=== PATIENT | male | born 1955 | race Two or more races ===

== ENCOUNTER 2021-04-13 09:36 | Day surgery (SDC) | payer MEDICARE, OTHER ==
[2021-04-11 15:09] VITALS: BMI 27.2
[~2021-04-13 09:36] MED LIST: ALPRAZolam 0.25 MG TAB PO PRN; ALPRAZolam 0.5 MG TAB PO PRN; ASPIRIN 325 MG TAB PO STA; ATORVASTATIN 80 MG TAB PO STA; NITROGLYCERIN SL TABS 0.4 MG TAB SUBLINGUAL PRN; SODIUM CHLORIDE 0.9% 1,000 ML in EMPTY BAG 1 BAG IV ONE
[2021-04-13] MEDS ORDERED: SODIUM CHLORIDE 0.9% 1,000 ML IV ONE (10:25)
[2021-04-13 10:36] LABS: Basophils % (A) 1 %; Eosinophils # (A) 0.3 k/uL (0-0.7); Eosinophils % (A) 5 %; HCT 39.5 % (39.0-53.0); HGB 13.4 gm/dL (13.0-17.5); Lymphocytes # (A) 2.2 k/uL (1.0-4.8); Lymphocytes % (A) 40 %; MCV 96.9 fL (80.0-100.0); Monocytes # (A) 0.4 k/uL (0-1.0); Monocytes % (A) 7 %; Neutrophils # (A) 2.5 k/uL (1.3-7.7); Neutrophils % (A) 46 %; Platelet Count 232 k/uL (150-450); RBC 4.08 m/uL (4.30-5.90); WBC 5.5 k/uL (3.8-10.6)
[2021-04-13] MEDS ORDERED: LIDOCAINE 1% INJ 10MG/ML (20 ML MDV) ONE (11:24)
[2021-04-13] MEDS ORDERED: fentaNYL (PF) 50 MCG/ML 2 ML AMP ONE (11:25)
[2021-04-13] MEDS ORDERED: MIDAZOLAM 2 MG/2 ML VIAL IV ONE (11:41)
[2021-04-13] MEDS ORDERED: LIDOCAINE 1% INJ 10MG/ML (20 ML MDV) SQ ONE (11:42)
[2021-04-13] MEDS ORDERED: HEPARIN SODIUM 1,000 UN/ML (10ML VL) ONE (12:13)
[2021-04-13] MEDS: HEPARIN SODIUM 1,000 UN/ML (10ML VL) IV ONE ×2 (12:20→12:30)
[2021-04-13] MEDS ORDERED: CLOPIDOGREL 75 MG TAB ONE (12:20)
[2021-04-13] MEDS ORDERED: CLOPIDOGREL 75 MG TAB PO ONE (12:24)
[2021-04-13] MEDS ORDERED: NITROGLYCERIN 1000MCG/10ML SYRINGE INTRACORON ONE ×2 (12:28→12:43)
[2021-04-13] MEDS ORDERED: IOPAMIDOL-370 125ML BTL INJ ONE (12:31)
[2021-04-13] MEDS ORDERED: IOPAMIDOL-370 100ML BTL INJ ONE ×2 (12:48→12:52)
[2021-04-13] MEDS ORDERED: NITROGLYCERIN SL TABS 0.4 MG TAB SUBLINGUAL PRN (13:04)
[2021-04-13] MEDS ORDERED: RX INFO: IV CONTRAST WAS GIVEN 1 EACH MISC MISCELLANE PRN (13:04)
[2021-04-13] MEDS ORDERED: ZOLPIDEM 5 MG TAB PO PRN (13:04)
[2021-04-13] MEDS ORDERED: ATROPINE SULFATE 0.1 MG/ML 10ML SYRINGE IV PRN (13:04)
[2021-04-13] MEDS ORDERED: MAG HYDROX/AL HYDROX/SIMETH 30 ML CUP PO PRN (13:04)
[2021-04-13] MEDS ORDERED: SODIUM CHLORIDE 0.9% 1,000 ML IV SCH (13:15)
--- NOTE | 2021-04-13 16:57 | CC ---
CARDIAC CATHETERIZATION REPORT INDICATION: Unstable angina. REFERRING PHYSICIAN: Dr. Shaheen Campos. PROCEDURE NOTE: After obtaining informed consent, left heart catheterization and coronary angiogram were performed via the right femoral artery using standard Esequiel catheters. Patient tolerated the procedure well without any obvious immediate complications. Patient received moderate conscious sedation. Total sedation time was 24 minutes. FINDINGS: HEMODYNAMICS: Left ventricular end-diastolic pressure is 18 mm. There is no significant gradient across the aortic valve. LEFT VENTRICULOGRAM: Not performed. ANGIOGRAPHIC DATA: LEFT MAIN CORONARY ARTERY: Left main coronary artery is a short vessel and is free of stenosis. Divides into left anterior descending coronary artery and circumflex coronary artery. LEFT ANTERIOR DESCENDING CORONARY ARTERY: The LAD images were obtained more selectively using a size 3.5 Eseuqiel catheter. CIRCUMFLEX CORONARY ARTERY is a large dominant vessel. The PDA shows about 80% stenosis. The OM branch which is a large caliber vessel shows an 80-90 percent stenosis. Proximal LAD shows a 90% stenosis. Mid to distal LAD has a 50-60 percent stenosis. CONCLUSIONS: Severe 2 vessel coronary artery disease as described above. PLAN: I reviewed angiographic data with Dr. Figueroa, the on-call hydraulic rockbreaker operator and had a long discussion with the patient about his treatment option including surgical revascularization versus catheter based revascularization, medical therapy. The patient understanding risks, benefits, wishes to have angioplasty and if necessary go to bypass surgery. The plan at this stage is to fix the LAD lesion, see what happens to his symptoms. If he is still symptomatic, we will go back and fix the PDA and attempt angioplasty of the OM branch which we believe is going to be more complex as a last resort. MMTRINAL / IJN: [id number] /
--- NOTE | 2021-04-13 16:57 | LTR ---
DATE OF SERVICE: 04/13/2021 Dear Shaheen: I performed cardiac catheterization on Tate Rodriguez. A detailed cardiac catheterization is enclosed for your records. In brief, the cardiac catheterization revealed severe 2 vessel coronary artery disease. We will attempt angioplasty of the LAD and if necessary the PDA coming off the Circ. Thank you as always for giving me the privilege to participate in the care of your patient. Sincerely, GLENIS / ELLAN: [id number] /
--- NOTE | 2021-04-13 17:27 | LTR ---
DATE OF SERVICE: 04/13/2021 Dr. Shaheen Campos Dear Dr. Campos: I had the pleasure of performing coronary angioplasty and stenting on Mr. Rodriguez at [facility] on April 13, and a full copy of procedure note will be forwarded to you. In brief, he underwent successful stenting of his proximal LAD and left PDA. I am hopeful that his procedure will stabilize his status and depending on his progress, further recommendations will be made. Thank you again for allowing me to participate in his care. Sincerely yours, MMODL / IJN: [id number] /
--- NOTE | 2021-04-13 17:27 | PTCA ---
PERCUTANEOUSTRANS CORORONARY ANGIOGRAPHY Mr. Rodriguez is a 65-year-old male with known history of diabetes who has been complaining of progressive exertional chest discomfort. He was evaluated by Dr. Palomo and underwent cardiac catheterization, was found to have critical stenosis involving the proximal LAD, the left PDA with a lesion in the left PLV as well as the first obtuse marginal branch. Discussion were made regarding possible coronary artery bypass grafting versus multivessel PCI. The decision was made to proceed with multivessel PCI. The procedure as well as the risks and the complications were discussed with the patient who is in full understanding and agreement. PROCEDURE DESCRIPTION: Using a 6-Czech FL4 guiding catheter, the left main was cannulated. Following that, a 0.014 balanced medium weight J-wire was advanced across the lesion, positioned distal LAD. Subsequently 2.5 x 12 mm NC Trek balloon was advanced and one inflation at 8 atmospheres was done. Following that, the balloon was removed and a 2.75 x 15 mm Xience Roberta stent was advanced, deployed and post dilated at 16 atmospheres. After the last inflation, after appropriate wait, the balloon and the guidewire were withdrawn back in the guiding catheter. Images were obtained, repeated. Those images reveal stable successful stenting. At that point, the wire was introduced into the distal left PDA and a 2.5 x 12 mm NC Trek balloon was advanced and two inflations at a maximum of 8 atmospheres were done. Following that, the balloon was removed and a 3.0 x 23 mm Xience Bar[place] point stent was advanced, deployed and post-dilated at 16 atmospheres. After the last inflation, after appropriate wait, the balloon and the guidewire were withdrawn back in the guiding catheter. Images were obtained repeated. Those images reveal stable successful stenting. At that point, the guiding catheter, the balloon and the guidewire were removed. The sheath was removed. Hemostasis was obtained with deployment of an Angio-Seal. There was no immediate complications. Patient is returned to his room in stable condition. Of note, the patient received a total of 8000 units of heparin. His ACT was followed and he received an oral loading dose of clopidogrel. He had chest discomfort and EKG changes with the inflations that resulted at the end of the procedure. RESULTS: 1. Successful stenting of the proximal LAD with reduction of stenosis from 95% to 0%. 2. Successful stenting of the left PDA with reduction of stenosis from 90% to 0%. RECOMMENDATIONS: Patient will be continued on aspirin, Plavix, statin and beta shahram. The importance of dual antiplatelet treatment were discussed with the patient and his family and they are in full understanding and agreement. He will be further evaluated regarding the need to undergo revascularization of his first obtuse marginal branch depending on his symptoms. Duration of sedation is 33 minutes. GLENIS / ELLAN: [id number] /
[2021-04-13] MEDS: METOPROLOL TARTRATE 25 MG TAB PO SCH (20:01)
[2021-04-13] MEDS ORDERED: PANTOPRAZOLE 40 MG TABLET PO SCH (21:00)
[2021-04-14 07:10] LABS: African American GFR (CKD) 86 (>60 ml/min/1.73 sqM); Anion Gap 11 mmol/L; Blood Urea Nitrogen 16 mg/dL (9-20); Calcium 10.1 mg/dL (8.4-10.2); Carbon Dioxide 24 mmol/L (22-30); Chloride 104 mmol/L (98-107); Glucose 125 mg/dL (74-99); Non-African American GFR(CKD) 74 (>60 ml/min/1.73 sqM); Potassium 4.6 mmol/L (3.5-5.1); Sodium 139 mmol/L (137-145)
[2021-04-14 07:14] LABS: Glucose,Whole Blood 140 mg/dL (75-99)
[2021-04-14] MEDS: METOPROLOL TARTRATE 25 MG TAB PO SCH (07:39)
[2021-04-14 07:46] VITALS: PULSE 54; RESP 17; TEMP 97.7
[2021-04-14] MEDS ORDERED: ATORVASTATIN 80 MG TAB PO SCH (09:00)
[2021-04-14] MEDS ORDERED: CLOPIDOGREL 75 MG TAB PO SCH (09:00)
[2021-04-14] MEDS ORDERED: ASPIRIN 81 MG PO SCH (09:00)
[2021-04-14] MEDS ORDERED: lisinopriL 10 MG TAB PO SCH (09:00)
--- NOTE | 2021-04-14 10:25 | PN ---
PROGRESS NOTE Mr. Rodriguez is a 65-year-old male, history of hypertension, hyperlipidemia, diabetes mellitus, who presented with new onset exertional angina pectoris, underwent cardiac catheterization by Dr. Palomo and was found to have critical stenosis involving the proximal LAD. The left PDA, the left PLV and the first obtuse marginal branch. He underwent stenting of the PDA and the LAD. He is feeling well this morning. He has no anginal symptoms. He denies any dizziness or palpitation. He denies any nausea. He continues to be on aspirin once a day, Plavix 75 mg daily, Lipitor 80 mg daily, lisinopril 10 mg daily, metoprolol tartrate 25 mg twice a day. PHYSICAL EXAMINATION: Blood pressure 132/80 with a heart rate in the 50s. Lungs: Clear. Heart: Regular rate and rhythm. S1, S2. No S3. No rub. Abdomen: Soft and nontender. Extremities: No edema. Right pulse intact. IMPRESSION: 1. Status post stenting and left PDA. 2. Obstructive disease in the first obtuse marginal branch in the left PLV. 3. Hypertension. 4. Diabetes. 5. Hyperlipidemia. RECOMMENDATIONS: I will stop his beta shahram. The patient should be able to be discharged home today and followed as an outpatient. He will continue medical therapy and observe his symptoms. If he has further symptoms, then revascularization of the PLV and the OM branch will be considered. MMTRINAL / ELLAN: [id number] /
--- NOTE | 2021-04-14 10:32 | DS ---
DISCHARGE SUMMARY Tate is a 65-year-old gentleman who presented to me with unstable angina and underwent cardiac catheterization and multivessel angioplasty. He had angioplasty of the LAD and left PDA and also has a lesion within the left PLV that we are going to treat with optimal medical therapy and see how he does. Today is postop post angioplasty day 1. He is doing well and is free of chest pain and is otherwise doing well. EXAM: Comfortable at rest. Vital signs are stable. Chest exam reveals good air entry bilaterally. Heart exam reveals first and second heart sounds. No gallop. Groin is free of bleeding, bruit, hematoma. Foot pulses are intact. LABS: Show that the potassium is 4.6. Creatinine is 1. EKG is to be reviewed. DISCHARGE MEDICATIONS: Include: 1. Zestril 10 mg daily. 2. Aspirin. 3. He will resume metformin in 2 days. 4. Plavix 75 mg daily. 5. Atorvastatin 80 mg daily. FOLLOWUP: He will be followed up in my office in a week's time. GLENIS / JORGE: [id number] /
[2021-04-14 11:11] VITALS: BP 109/64
== END 2021-04-14 11:49 | disposition home or self-care (01) ==
LOC: CATHCVL 09:36 → 6NMEDSUR 14:47 → CATHCVL 04-14 11:49
PROVIDERS: ATTEND Internal Medicine Cardiovascular Disease
DX: I25.110 Atherosclerotic heart disease of native coronary artery with unstable angina pectoris (principal); E78.5 Hyperlipidemia, unspecified; E11.9 Type 2 diabetes mellitus without complications; I10 Essential (primary) hypertension; Z79.899 Other long term (current) drug therapy; Z79.84 Long term (current) use of oral hypoglycemic drugs
CPT/HCPCS: 93458; 80048; 85025; 87635; C9600 ×2; C1769 ×3; C1760; C1887; C1725; C1894; C1874 ×2; J2250; J2001; J1644; Q9967 ×2

== ENCOUNTER → 2023-09-12 | Outpatient (CLI) | payer MEDICARE, OTHER ==
--- NOTE | 2023-09-12 14:02 | P.SLEEP ---
History of Present Illness DATE: 09/12/2023 CONSULTATION/NEW PATIENT EVALUATION HISTORY OF PRESENT ILLNESS/SLEEP-WAKE EVALUATION: 67 year old gentleman had b een evaluated in the sleep center for possible obstructive sleep apnea hypopnea syndrome. SLEEP SCHEDULE: Usually sleep schedule from 10-11 PM until 6 AM 7 days a week. FALLING ASLEEP: Sometimes patient has difficulties to initiate sleep, used to read in bedroom. DURING SLEEP: Patient snores and wakes up several times from sleep with nocturia. No history of hypnogogical hallucinations, sleep paralysis, or cataplexy. DURING THE DAY/WAKE STATE: Patient feels sleepiness during the day, has problems with memory, concentration and irritability.. Holiday sleepiness scale is 14. Patient may take up to 2 naps during the day. PAST MEDICAL HISTORY: Hypertension, coronary artery disease, diabetes mellitus, acid reflux. PAST SURGICAL HISTORY: Stent insertions to coronary artery, her knee repair, surgical treatment of carpal tunnel syndrome. MEDICATIONS: Lisinopril 10 mg once a day, metformin 1000 mg, Lipitor 40 mg once a day, omeprazole 20 mg once a day, nitroglycerin as needed, glimepiride 10 mg once a day. SOCIAL HISTORY: Negative for smoking or using alcohol heart problems. FAMILY HISTORY: Heart problems, Diabetes. REVIEW OF SYSTEMS: Snoring, awakenings from sleep, significant excessive daytime sleepiness. No fevers. No double vision. No recent chest pain. No shortness of breath. No abdominal pain. No bleeding episodes. No blood in urine. No seizure episodes. PHYSICAL EXAMINATION: GENERAL: A pleasant patient without any distress. VITAL SIGNS: BP 130/71 , HR 60 , RR 12 , weight 193.4 pounds, height 5 foot 9-1/4 inches, body mass index 28.3 . HEENT: PERRLA, EOMI. Evaluation of oropharynx showed tongue protrudes midline, low position of soft palate Mallampati 2. NECK: Supple. No JVD. Thyroid is not palpable. 17 inches in circumference. LUNGS: Clear to percussion and to auscultation. Good air exchange. No wheezing or rhonchi. HEART: S1, S2 regular. No murmurs, gallops or rubs. ABDOMEN: Soft and nontender. Bowel sounds are present. No organomegaly appreciated. EXTREMITIES: No clubbing or cyanosis. ALUMNAE SECRETARY: Awake, alert, and oriented x3. Cranial nerves 2 to 7 intact. There is no fasciculation or atrophy noted. No focal deficits observed. ASSESSMENT: 1. Snoring, awakenings from sleep, wide neck 17 inches in circumference, significant sleepiness with Holiday Sleepiness Scale 14. Obstructive sleep apnea-hypopnea syndrome. 2. Hypertension. 3. Coronary artery disease, status post stent insertion. 4. Diabetes mellitus. 5 acid reflux. PLAN: 1. Polysomnography for evaluation of patient's breathing during sleep. 2. CPAP/BiPAP titration if sleep study confirms obstructive sleep apnea- hypopnea syndrome. 3. Preferable position during sleep on the side. 4. No driving if patient feels any sleepiness. Patient is aware of civil and criminal liability for unsafe driving. 5. Sleep hygiene with regular sleep time for at least 7.5-8 hours. 6. Watching weight. Thank you very much for referring this patient for consultation. Sincerely, Jose Luis Parks MD, PhD, FAASM. Diplomat of [place] Board of Sleep Medicine, Sleep Medicine Board by [place] Board of Medical Specialities [place] Board of Internal Medicine Practicing Md Anesthesiologist [facility] [place] Past Medical History Past Medical History: Diabetes Mellitus, GERD/Reflux, Hyperlipidemia, H ypertension History of Any Multi-Drug Resistant Organisms: None Reported Past Surgical History: Adenoidectomy, Back Surgery, Hernia Repair, Orthopedic Surgery, Tonsillectomy Additional Past Surgical History / Comment(s): Colonoscopy, laminectomy, double hernia repair X2, right hand carpal tunnel surgery. Past Anesthesia/Blood Transfusion Reactions: No Reported Reaction Past Psychological History: No Psychological Hx Reported Smoking Status: Never smoker Past Alcohol Use History: Daily Additional Past Alcohol Use History / Comment(s): "2 beers most days, not everyday." Past Drug Use History: None Reported - Past Family History Mother Family Medical History: Cancer Additional Family Medical History / Comment(s): Breast cancer. Brother(s) Additional Family Medical History / Comment(s): Circulatory issues, arterial blockage. Medications and Allergies Home Medications Medication Instructions Recorded Confirmed Type Aspirin [Adult Low Dose Aspirin EC] 81 mg PO QAM 04/11/21 04/13/21 History Cetirizine HCl 10 mg PO HS 04/11/21 04/13/21 History Multivitamins, Thera [Multivitamin 1 tab PO DAILY 04/11/21 04/13/21 History (formulary)] Omeprazole 20 mg PO HS 04/11/21 04/13/21 History Vitamin B-12 (Unknown Dose) 1 tab PO DAILY 04/11/21 04/13/21 History lisinopriL [Zestril] 10 mg PO QAM 04/11/21 04/13/21 History metFORMIN HCL 1,000 mg PO DAILY 04/11/21 04/11/21 History Atorvastatin [Lipitor] 80 mg PO DAILY #90 tab 04/14/21 Rx Clopidogrel [Plavix] 75 mg PO DAILY #90 tab 04/14/21 Rx Nitroglycerin Sl Tabs [Nitrostat] 0.4 mg SUBLINGUAL Q5M PRN #25 tab 04/14/21 Rx Allergies Allergy/AdvReac Type Severity Reaction Status Date / Time No Known Allergies Allergy Verified 04/11/21 12:07 Sleep Note - Sleep Note Sleep Note: Temperature: Pulse Rate: Respiratory Rate: Blood Pressure: SpO2: Height: Weight: BMI: Neck Circumference:
== END ==
LOC: 3 N SLEEP 13:12
PROVIDERS: ATTEND Internal Medicine
DX: G47.33 Obstructive sleep apnea (adult) (pediatric) (principal); R06.83 Snoring; I10 Essential (primary) hypertension; I25.10 Atherosclerotic heart disease of native coronary artery without angina pectoris; E11.9 Type 2 diabetes mellitus without complications; K21.9 Gastro-esophageal reflux disease without esophagitis; Z99.89 Dependence on other enabling machines and devices; Z95.5 Presence of coronary angioplasty implant and graft; Z79.84 Long term (current) use of oral hypoglycemic drugs; Z79.899 Other long term (current) drug therapy; Z79.82 Long term (current) use of aspirin
CPT/HCPCS: 99211

== ENCOUNTER 2023-10-15 19:42 | Outpatient (CLI) | payer MEDICARE, OTHER ==
--- NOTE | 2023-10-18 11:44 | P.PCN ---
Description of Procedure: POLYSOMNOGRAPHY REPORT PROCEDURE(S)/DATE(S): Polysomnography 10/15/2023 CLINICAL: Patient has been seen in the sleep center for evaluation of obstructive sleep apnea-hypopnea syndrome. Please see my consultation. Sleep study has been done for evaluation of patient breathing during the sleep. PROCEDURE: The standard montage for clinical polysomnography included the electroencephalogram, the electrooculogram, the mentalis surface electromyography and Lead II cardiography. The respiratory battery consisted of measurements of nasal/buccal air flow, pressure transducer measurements from nose, thoracic and/or abdominal effort and intercostal surface electromyography. Video monitoring has been done to check for any parasomnia events. Nocturnal oxyhemoglobin saturations were obtained by finger oximetry. Step-hernadez titration with positive airway pressure was utilized to control the respiratory events, if necessary. RESULTS: During the diagnostic sleep study sleep efficiency was close to normal 87.0%. Latency to sleep onset was short 5.0 min. Sleep architecture showed st age NI was slightly increased to 10.1%, Delta sleep was absent 0%, REM sleep was decreased to 10.0%. Respiratory channel showed 2 obstructive apneas, 0 mixed apneas, 0 central apneas, 27 hypopneas with lowest oxygen level 89%. Total apnea hypopnea index was 5.2. Heart rate was in the range between 44 and 53, average 48. EMG showed 1.3 periodic limb movements per hour . IMPRESSIONS: 1. Obstructive sleep apnea hypopnea syndrome in mild range. Patient has symptoms of significant excessive daytime sleepiness with [place] Sleepiness Scale increased to 14. 2. No significant periodic limb movements have been documented. 3. Hypertension 4. Coronary artery disease. Please see other impressions from consultation PLAN: 1. The patient will have AutoPAP treatment for correction of respiratory abnormalities during the sleep. 2. Watching weight . 3. Sleep hygiene with regular time in bed for at least 7-1/2 hours. 4. No driving if feeling sleepiness. 5. I will see patient for follow-up visit to evaluate clinical response on treatment with CPAP, compliance with treatment and [place] adjustments related to mask fitting pressure and humidification. If patient will continue symptoms of significant excessive daytime sleepiness, we may consider multiple sleep latency test. Thank you very much for allowing me to participate in the management of your patient. Sincerely, Jose Luis Parks MD, PhD, FAASM. Diplomat of [place] [employer] Board of Sleep Medicine, Sleep Medicine Board by [place] [employer] Board of Internal Medicine Rn [facility] [place]
== END 2023-10-16 05:55 | disposition home or self-care (01) ==
LOC: 3 N SLEEP 19:42
PROVIDERS: ATTEND Internal Medicine
DX: G47.33 Obstructive sleep apnea (adult) (pediatric) (principal)
CPT/HCPCS: 95810